=== PATIENT | female | born 2000 | race American Indian/Alaskan Native ===

== ENCOUNTER 2021-07-16 20:46 | Emergency (ER) | payer OTHER, MEDICAID ==
[2021-07-16 21:02] VITALS: BP 123/83
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
[2021-07-16] MEDS ORDERED: IBUPROFEN 400 MG TAB PO ONE (21:55)
[2021-07-16] MEDS ORDERED: ACETAMINOPHEN 500 MG TAB PO ONE (21:55)
== END 2021-07-16 23:19 | disposition home or self-care (01) ==
LOC: ED 20:46
DX: S09.90XA Unspecified injury of head, initial encounter (principal); J45.909 Unspecified asthma, uncomplicated; Z86.69 Personal history of other diseases of the nervous system and sense organs; V87.7XXA Person injured in collision between other specified motor vehicles (traffic), initial encounter; Y93.89 Activity, other specified; Y92.488 Other paved roadways as the place of occurrence of the external cause; Y99.8 Other external cause status
CPT/HCPCS: 99283

== ENCOUNTER 2021-11-16 23:33 | Emergency (ER) | payer MEDICAID ==
[2021-11-17] MEDS ORDERED: ACETAMINOPHEN 500 MG TAB PO ONE (02:34)
[2021-11-17] MEDS ORDERED: IBUPROFEN 600 MG TAB PO ONE (02:34)
--- NOTE | 2021-11-17 03:09 | XRay Report ---
Right ankle, 3 views HISTORY: Fall COMPARISON: None FINDINGS: No acute fracture or malalignment. Ankle mortise is symmetric. There is soft tissue swellin g of the lateral ankle. IMPRESSION: Lateral ankle soft tissue swelling. No acute osseous findings. Signer Name: Rogelio Sorensen MD Signed: 11/17/2021 3:05 AM Workstation Name: [id number]
--- NOTE | 2021-11-17 03:31 | Emergency Department Report ---
ED Lower Extremity HPI - General Chief Complaint: Extremity Injury, Lower Stated Complaint: POSS BROKEN ANKLE Source: patient Mode of arrival: Ambulatory Limitations: No Limitations - History of Present Illness Initial Comments: Patient is a nulliparous 21-year-old -[place] female with a history of asthma and seizures who presents to the ED with complaint of acute onset persistent severe right ankle pain and swelling after she twisted her right ankle while walking in the house about 8 hours ago. Patient states that the pain was initially mild but got worse in the last 4 hours such that she has not been able to bear weight on the right ankle because of pain and swelling. Patient denies fall, nausea and vomiting, numbness and tingling or weakness of right leg, dizziness, syncope, traumatic injury or low back pain. MD Complaint: ankle injury (Right ankle pain and swelling) -: Sudden, hour(s) (8) Injury: Ankle: Right (Pain and swelling) Type of Injury: inversion Place: home Severity: severe Severity scale (0 -10): 8 Improves With: nothing Worsens With: weight bearing, movement, palpation Context: walking Associated Symptoms: snap/pop sensation, swelling, able to partially bear weight. denies: numbness, tingling, unable to bear weight - Related Data Previous Rx's Medication Instructions Recorded Last Taken Type Cyclobenzaprine [Flexeril] 10 mg PO TID PRN #20 tablet 07/16/21 Unknown Rx HYDROcodone/APAP 5-325 [[place] 1 each PO Q6HR PRN #10 tablet 07/16/21 Unknown Rx 5/325] Ibuprofen [Motrin 400 MG tab] 400 mg PO TID 5 Days #15 tablet 07/16/21 Unknown Rx Ibuprofen [Motrin] 600 mg PO Q8H PRN #30 tablet 11/17/21 Unknown Rx Allergies Allergy/AdvReac Type Severity Reaction Status Date / Time No Known Allergies Allergy Unverified 07/16/21 21:02 ED Review of Systems ROS: Stated complaint: POSS BROKEN ANKLE Other details as noted in HPI Constitutional: denies: chills, fever Eyes: denies: eye pain, eye discharge, vision change ENT: denies: ear pain, throat pain Respiratory: denies: cough, shortness of breath, wheezing Cardiovascular: denies: chest pain, palpitations Endocrine: no symptoms reported Gastrointestinal: denies: abdominal pain, nausea, diarrhea Genitourinary: denies: urgency, dysuria, discharge Musculoskeletal: joint swelling (Right ankle pain and swelling), arthralgia (Right ankle pain and swelling). denies: back pain Skin: denies: rash, lesions Neurological: denies: headache, weakness, paresthesias Psychiatric: denies: anxiety, depression Hematological/Lymphatic: denies: easy bleeding, easy bruising ED Past Medical Hx - Past Medical History Previous Medical History?: Yes Hx Seizures: Yes Hx Asthma: Yes - Surgical History Past Surgical History?: No - Social History Smoking Status: Never Smoker Substance Use Type: None - Medications Home Medications: Home Medications Medication Instructions Recorded Confirmed Last Taken Type Cyclobenzaprine [Flexeril] 10 mg PO TID PRN #20 tablet 07/16/21 Unknown Rx HYDROcodone/APAP 5-325 [[place] 1 each PO Q6HR PRN #10 tablet 07/16/21 Unknown Rx 5/325] Ibuprofen [Motrin 400 MG tab] 400 mg PO TID 5 Days #15 tablet 07/16/21 Unknown Rx Ibuprofen [Motrin] 600 mg PO Q8H PRN #30 tablet 11/17/21 Unknown Rx ED Physical Exam - General Limitations: No Limitations General appearance: alert, in no apparent distress - Head Head exam: Present: atraumatic, normocephalic, normal inspection - Eye Eye exam: Present: normal appearance, PERRL, EOMI Pupils: Present: normal accommodation - ENT ENT exam: Present: normal exam, normal orophraynx, mucous membranes moist, TM's normal bilaterally, normal external ear exam - Neck Neck exam: Present: normal inspection, full ROM. Absent: tenderness, lym phadenopathy - Respiratory Respiratory exam: Present: normal lung sounds bilaterally. Absent: respiratory distress, wheezes, rales, rhonchi, chest wall tenderness, accessory muscle use, prolonged expiratory - Cardiovascular Cardiovascular Exam: Present: regular rate, normal rhythm, normal heart sounds. Absent: systolic murmur, diastolic murmur, rubs, gallop - GI/Abdominal GI/Abdominal exam: Present: soft, normal bowel sounds. Absent: tenderness, guarding, rebound, hyperactive bowel sounds, hypoactive bowel sounds, organomegaly - Extremities Exam Extremities exam: Present: normal inspection, tenderness (Palpable right ankle tenderness with mild swelling and limited range of motion due to pain), normal capillary refill, joint swelling. Absent: full ROM (Limited range of motion due to pain of right ankle), pedal edema, calf tenderness - Back Exam Back exam: Present: normal inspection, full ROM. Absent: tenderness, CVA tenderness (R), CVA tenderness (L), muscle spasm, paraspinal tenderness, vertebral tenderness - Neurological Exam Neurological exam: Present: alert, oriented X3, CN II-XII intact, normal gait, reflexes normal - Psychiatric Psychiatric exam: Present: normal affect, normal mood - Skin Skin exam: Present: warm, dry, intact, normal color. Absent: rash ED Course Vital Signs 11/17/21 11/17/21 11/17/21 02:27 02:59 03:00 Temperature 98.7 F Pulse Rate 80 Respiratory 16 16 16 Rate Blood Pressure 124/67 [Right] O2 Sat by Pulse 100 Oximetry ED Lower Extremity MDM - Radiology Data Radiology results: report reviewed, image reviewed [facility] [address] [place] [address] XRay Report Signed Patient: CHRISSIE JACKSON MR#: [id number] : 2000 Acct:[id number] Age/Sex: 21 / F ADM Date: 11/16/21 Loc: ED Attending Dr: Ordering Physician: KRISTIN PACHECO Date of Service: 11/17/21 Procedure(s): XR ankle 3+V RT Accession Number(s): [id number] cc: KRISTIN PACHECO Fluoro Time In Minutes: Right ankle, 3 views HISTORY: Fall COMPARISON: None FINDINGS: No acute fracture or malalignment. Ankle mortise is symmetric. There is soft tissue swelling of the lateral ankle. IMPRESSION: Lateral ankle soft tissue swelling. No acute osseous findings. Signer Name: Taran Harrell MD Signed: 11/17/2021 3:05 AM Workstation Name: [id number] Transcribed By: JS Dictated By: TARAN HARRELL MD Electronically Authenticated By: TARAN HARRELL MD Signed Date/Time: 11/17/21304 DD/ 3 TD/TT: - Medical Decision Making This is a nulliparous 21-year-old -[place] female with a history of asthma and seizures who presents to the ED with complaint of acute onset persistent severe right ankle pain and swelling after she twisted her right ankle while walking in the house about 8 hours ago. Patient states that the pain was initially mild but got worse in the last 4 hours such that she has not been able to bear weight on the right ankle because of pain and swelling. In the ED, patient is alert and oriented x3 and is not in any distress. Patient was treated for pain in the ED and right ankle x-ray showed no acute fractures o r subluxations. The patient right ankle was splinted with Dereje wrap and the patient was therefore discharged home on pain medications and advised to follow- up with her primary care physician in 5 to 7 days for reevaluation or return to the ED immediately if symptoms get worse. - Differential Diagnosis Ankle fracture; ankle sprain; muscle strain; Critical care attestation.: If time is entered above; I have spent that time in minutes in the direct care of this critically ill patient, excluding procedure time. ED Disposition Clinical Impression: Severe sprain of right ankle Qualifiers: Encounter type: initial encounter Qualified Code(s): S93.401A - Sprain of unspecified ligament of right ankle, initial encounter Disposition: 01 HOME / SELF CARE / HOMELESS Is pt being admited?: No Does the pt Need Aspirin: No Condition: Stable Instructions: Ankle Sprain, [id number] Additional Instructions: The right ankle x-ray showed no acute fractures or subluxations but soft tissue swelling. Therefore take medications with food, drink plenty of fluids and follow-up with your primary care physician in 5 to 7 days for reevaluation. Return to the ED immediately if symptoms get worse Prescriptions: Ibuprofen [Motrin] 600 mg PO Q8H PRN #30 tablet PRN Reason: Pain Referrals: [facility] [Provider Group] - 3-5 Days Forms: Work/School Release Form(ED) Time of Disposition: 03:31 Print Language: CHINESE
[2021-11-17 04:30] VITALS: BP 118/79
== END 2021-11-17 04:58 | disposition home or self-care (01) ==
LOC: ED 23:33
DX: S93.401A Sprain of unspecified ligament of right ankle, initial encounter (principal); J45.909 Unspecified asthma, uncomplicated; X58.XXXA Exposure to other specified factors, initial encounter; Y93.89 Activity, other specified; Y92.89 Other specified places as the place of occurrence of the external cause; Y99.8 Other external cause status
CPT/HCPCS: 99283